=== PATIENT | female | born 2000 | race Two or more races ===

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

== ENCOUNTER 2024-05-16 14:12 | Emergency (ER) | payer BC, SELFPAY ==
--- NOTE | ~2024-05-16 | CT_ITS ---
EXAMINATION: CT ABDOMEN AND PELVIS WITHOUT CONTRAST CLINICAL INFORMATION: Right lower quadrant and back pain. Microscopic hematuria. Evaluate for renal stone. COMPARISON: None available. TECHNIQUE: Multidetector volumetric imaging was performed from the superior aspect of the liver through the pubic symphysis. Sagittal and coronal reformatted images were obtained on the technologist's workstation. This CT examination was performed using dose optimization techniques as appropriate, variously including the following: *Automated exposure control *Adjustment of mA and/or kV according to patient size (this includes techniques or standardized protocols for targeted exams where dose is matched to indication/reason for exam; i.e. extremities or head) *Use of iterative reconstruction technique DLP: 338 mGy-cm FINDINGS: LUNG BASES: The visualized lung bases are unremarkable. LIVER, GALLBLADDER, AND BILIARY TREE: The liver is normal in size, shape, and attenuation. No focal hepatic lesion or biliary ductal dilatation is present. The gallbladder is unremarkable with no evidence of radiopaque gallstones, gallbladder wall thickening, or obvious pericholecystic inflammatory changes. PANCREAS: Unremarkable. SPLEEN: Unremarkable. ADRENAL GLANDS: Unremarkable. KIDNEYS AND URETERS: The kidneys are normal in size, shape, and attenuation. No hydronephrosis, hydroureter, or calculi seen. No perinephric stranding. BLADDER: Distended. No wall thickening. GASTROINTESTINAL TRACT: Moderate stool burden. The appendix is not well visualized. ABDOMINAL WALL: No significant hernia is appreciated. LYMPH NODES: Normal. VASCULAR: Unremarkable. PELVIC VISCERA: IUD in place. OSSEOUS STRUCTURES: Unremarkable. CT/CT abdomen pelvis wo IV con IMPRESSION: 1. No nephrolithiasis. 2. Moderate stool burden. The appendix is not well visualized. Fleischner guidelines were followed. Electronically signed by: Moshe Raza MD 05/16/2024 03:34 PM EDT
[2024-05-16 14:19] VITALS: BP 124/68; PULSE 78; RESP 18; TEMP 36.6; O2SAT 100; BMI 20.5
--- NOTE | 2024-05-16 14:19 | ED_ITS ---
HPI - Abdominal Pain General Chief Complaint: Abdominal Pain Stated Complaint: abd pain Time Seen by Provider: 05/16/24 14:40 Source: patient and family Mode of arrival: ambulatory Limitations: no limitations History of Present Illness HPI narrative: Patient is a 23-year-old female who presents emergency department for evaluation of right lower quadrant abdominal pain with some radiation to the back exacerbated while ambulating. Denies history of similar pain in the past. The pain has been constant throughout today with varying intensity. Denies fevers, chills, chest pain, nausea, vomiting, hematemesis, diarrhea, constipation, hematochezia, melena, dysuria, frequency, urinary urgency, hesitancy, hematuria, denies pelvic pain or abnormal vaginal discharge. Denies concern for sexually transmitted infection. Denies concern for , LMP unknown has IUD. Related Data Allergies Allergy/AdvReac Type Severity Reaction Status Date / Time No Known Allergies Allergy Verified 05/16/24 14:20 Review of Systems Review of Systems Yes all other systems are reviewed and are negative [facility] Past Medical History Attestation statement: The following information was validated with the patient. Source: old records reviewed Social History Social History Advance Directives: No Advance Directives Information Provided: No Do you have a plan to hurt others: No Plan Physical Exam ED Vital Signs: Vital Signs - 24 hr 05/16/24 14:19 Temperature 97.9 F Pulse Rate 78 Respiratory Rate 18 Blood Pressure 124/68 Pulse Oximetry 100 Oxygen Delivery Method Room Air BMI result Body Mass Index 20.5 Appearance: Alert.?Oriented to person, place and time. No acute distress.?Normal affect.?? Neck: Normal inspection.? Neck supple.?? CVS: Heart sounds normal. Normal heart rate and rhythm.? Pulses normal.?? Respiratory: No respiratory distress.? Lung sounds clear to auscultation bilaterally?? Abdomen: Soft mild tenderness upon palpation over the right lower quadrant. No rebound tenderness at McBurney's point. Negative psoas sign. Negative Rovsing sign. Negative Becker sign. Positive right CVAT. Normoactive bowel sounds. No pulsatile mass.?? Skin: Skin warm and dry.? Normal skin color.? Extremities: No lower extremity edema.? Neuro: Moves all extremities spontaneously. Sensation intact bilaterally. Ambulates with normal steady gait. Course Course Course Narrative: This is a rapid medical exam. Defer additional HPI, ROS, PE to primary provider. 23-year-old female with no known medical history presents with a right lower quadrant abdominal pain with waking, lower back pain. No other symptoms. Has IUD in place (does not get period). Patient was seen at urgent care and referred in for further evaluation. Will need labs, UA, ur preg. Defer imaging to provider. GHAZAL Singer APRN Reevaluation(s) Reevaluation #1: CT of the abdomen and pelvis without acute pathology, although appendix is not well visualized, she has no rebound tenderness, and her pain on palpation is very mild, leukocytosis, she is afebrile in no tachycardia, CRP is not elevated. Does have a moderate stool burden and upon my personal interpretation of CT imaging there is a significant stool burden in the right lower quadrant and may be the cause for her pain. She does state that she typically moves her bowels multiple times daily in the morning with normal caliber no diarrhea. Of note she has only had a single bowel movement this morning, a smaller amount than usual. CT also reveals a distended bladder, no evidence of nephrolithiasis or ureteral dilation to suggest we sent stone passing, again urinalysis without compelling evidence of UTI, she does state that she has a ?fear to urinate due to the pain? denies overt symptoms, she was requested to urinate after CT scan results were reviewed, PVR following was 0, so no acute urinary retention. Medical Decision Making Medical Decision Making MDM Narrative: Patient is a 23-year-old female who presents emergency department for evaluation of right lower quadrant pain as per HPI. Overall she appears well, nontoxic, afebrile. She does have some mild tenderness upon palpation in the right lower quadrant though no rigidity or guarding, negative rebound tenderness at McBurney's point, some mild right CVAT. Urinalysis with microscopic hematuria but no signs of infection concern at this time for nephrolithiasis/ureteral calculi versus appendicitis. Negative Becker sign, unlikely acute cholecystitis, choledocholithiasis, no fever or jaundice to suggest acute cholangitis. Denies associated acid reflux, no tenderness upon palpation over the epigastrium or left upper quadrant to suggest gastritis, no recent hematemesis history less likely to suggest PUD. Denies excessive alcohol consumption, history of diabetes, lower suspicion acute pancreatitis. No tenderness of the left lower quadrant nor associated nausea, vomiting, diarrhea patient, hematochezia or melena to suggest diverticulitis or GI bleed. No appreciable hernia to suggest strangulation/incarceration. Lower suspicion for bowel obstruction. No distention or rigidity to suggest GI perforation. hCG is negative, unlikely ectopic , no reported history of ovarian cysts, no pelvic pain, lower clinical suspicion for TOA/torsion. Differential Diagnosis Differential Diagnoses: The differential diagnosis associated with the presentation includes (See narrative above) Admission/Observation Consideration of admission/observation: Escalation of care including admission/observation considered (See narrative above ) Lab Data MDM Lab Attestation statement: I reviewed the patient's lab results. CBC is without leukocytosis anemia or thrombocytopenia. No electrolyte derangement. No ENE. LFTs within normal range 05/16/24 14:28 05/16/24 14:28 Labs: Lab Results 05/16/24 Range/Units 14:28 WBC 9.6 (4.8-10.8) X10*3/uL RBC 5.20 (4.20-5.50) X10*6/uL Hgb 13.1 (12.0-16.0) g/dl Hct 40.5 (37.0-47.0) % MCV 77.9 L (80.0-98.0) fL MCH 25.2 L (27.0-33.0) pg MCHC 32.3 (31.0-35.0) g/dl RDW 13.4 (11.0-16.0) % Plt Count 268 (160-400) X10*3/uL MPV 9.4 (9.4-12.3) fL Immature Gran % (Auto) 0.3 (0.0-0.4) % Neut % (Auto) 63.7 (45-73) % Lymph % (Auto) 29.8 (20-40) % [place] % (Auto) 5.1 (2-11) % Eos % (Auto) 0.5 (0-4) % Baso % (Auto) 0.6 (0-2) % Lymph # (Auto) 2.9 (1.2-4.9) X10*3/uL [place] # (Auto) 0.5 (0.1-1.2) X10*3/uL Eos # (Auto) 0.1 (0.0-0.4) X10*3/uL Baso # (Auto) 0.1 (0.0-0.2) X10*3/uL Abs Immat Gran (auto) 0.03 (0.00-0.03) X10*3/uL Absolute Neuts (auto) 6.1 (2.0-8.3) x10*3/uL Absolute Nucleated RBC 0.000 (0.0-0.012) X10*3/uL Nucleated RBC % (auto) 0.0 (0.0-0.2) /100WBC Sodium 139 (135-145) mmol/L Potassium 3.6 (3.3-5.1) mmol/L Chloride 103 (96-108) mmol/L Carbon Dioxide 26 (22-29) mmol/L Anion Gap 14 (12-20) BUN 14 (9-16) mg/dL Creatinine 0.82 (0.5-1.4) mg/dL Estim Creat Clear Calc 110.8 Estimated GFR > 60 Random Glucose 115 (60-115) mg/dL Calcium 9.8 (8.4-10.2) mg/dL Total Bilirubin 0.7 (0.0-1.0) mg/dL Direct Bilirubin 0.3 (0.0-0.5) mg/dL AST 32 H (5-31) U/L ALT 30 (0-31) U/L Alkaline Phosphatase 71 (39-117) U/L C-Reactive Protein 0.16 (< or = 0.50) mg/dL Total Protein 8.2 H (6.5-8.0) g/dL Albumin 4.9 (3.5-5.0) g/dL Urine Color Yellow Urine Appearance Clear Urine pH 5.5 (5.0-9.0) Ur Specific [place] 1.010 (1.005-1.025) Urine Protein Negative (Neg-Trace) mg/dL Urine Glucose (UA) Negative (Negative) mg/dL Urine Ketones Negative (Negative) mg/dL Urine Blood Moderate (2+) H (Negative) Urine Nitrite Negative (Negative) Ur Leukocyte Esterase Negative (Negative) Urine RBC 6-10 H (0-2) /HPF Urine WBC 0-5 (0-5) /HPF Ur Squamous Epith Cells 0-2 (0-2) /HPF Urine Bacteria None Seen (None Seen) Hyaline Casts 0-2 (0-2) /LPF Urine Test NEGATIVE (NEGATIVE) Discharge Plan Discharge Clinical Impression: Constipation, Abdominal pain Patient Disposition: Home, Self-Care Instructions: Constipation (ED), High Fiber Diet (ED), Abdominal Pain (ED) Additional Instructions: Workup today is concerning for a moderate amount of stool in the right lower part of your abdomen which may be resulting in the pain you are experiencing. You have reported daily bowel movements without complication, including a bowel movement earlier today, therefore I recommend that you continue your dietary practices and fluid intake, if you find that you were having a more difficult time having a bowel movement over the next few days you may consider purchasing [id number] [employer] to take as per package instructions to help ease bowel movement. If you are having new or worsening symptoms or concerns you may return to emergency department for evaluation, follow-up with your primary care doctor. Print Language: Welsh
[2024-05-16 14:33] LABS: MANUAL DIFF FLAG NO
[2024-05-16 14:34] LABS: Basophils Absolute Auto 0.1 X10*3/uL (0.0-0.2); Basophils Percent Auto 0.6 % (0-2); Eosinophils Absolute Auto 0.1 X10*3/uL (0.0-0.4); Eosinophils Percent Auto 0.5 % (0-4); Hematocrit 40.5 % (37.0-47.0); Hemoglobin 13.1 g/dl (12.0-16.0); Imm Gran Abs Auto 0.03 X10*3/uL (0.00-0.03); Imm Gran Pct Auto 0.3 % (0.0-0.4); Lymphocytes Absolute Auto 2.9 X10*3/uL (1.2-4.9); Lymphocytes Percent Auto 29.8 % (20-40); Mean Corpuscular HGB Conc 32.3 g/dl (31.0-35.0); Mean Corpuscular Hemoglobin 25.2 pg (27.0-33.0); Mean Corpuscular Volume 77.9 fL (80.0-98.0); Mean Platelet Volume 9.4 fL (9.4-12.3); Monocytes Absolute Auto 0.5 X10*3/uL (0.1-1.2); Monocytes Percent Auto 5.1 % (2-11); Neutrophils Absolute Auto 6.1 x10*3/uL (2.0-8.3); Neutrophils Percent Auto 63.7 % (45-73); Platelet Count 268 X10*3/uL (160-400); Red Cell Distribution Width 13.4 % (11.0-16.0); White Blood Count 9.6 X10*3/uL (4.8-10.8)
[2024-05-16 14:36] LABS: Appearance Urine Clear; Color Urine Yellow; Glucose Urine UA Negative (Negative); Leukocyte Esterase Urine Negative (Negative); Nitrite Urine Negative (Negative); PH 5.5 (5.0-9.0); UMIC TRIGGER UACC YES; Urine Blood Moderate (2+) (Negative); Urine Ketones Negative (Negative); Urine Protein Negative (Neg-Trace)
[2024-05-16 14:37] LABS: UPreg QC Valid YES; Urine Pregnancy NEGATIVE (NEGATIVE)
[2024-05-16 14:38] LABS: Bacteria Urine None Seen (None Seen); Hyaline Casts Urine 0-2 /LPF (0-2); Squamous Epithelial Cell Urine 0-2 /HPF (0-2); WBC Urine 0-5 /HPF (0-5)
[2024-05-16 14:56] LABS: Alanine Aminotransferase 30 U/L (0-31); Albumin Level 4.9 g/dL (3.5-5.0); Alkaline Phosphatase 71 U/L (39-117); Anion Gap 14 (12-20); Aspartate Amino Transferase 32 U/L (5-31); Bilirubin Direct 0.3 mg/dL (0.0-0.5); Bilirubin Total 0.7 mg/dL (0.0-1.0); Blood Urea Nitrogen 14 mg/dL (9-16); Calcium 9.8 mg/dL (8.4-10.2); Carbon Dioxide 26 mmol/L (22-29); Chloride 103 mmol/L (96-108); Creatinine Clr Calc Pharmacy 110.8; Estimated Glomerular Filt Rate > 60; Glucose Random 115 mg/dL (60-115); Potassium 3.6 mmol/L (3.3-5.1); Sodium 139 mmol/L (135-145); Total Protein 8.2 g/dL (6.5-8.0)
[2024-05-16 16:00] LABS: C Reactive Protein 0.16 mg/dL (< or = 0.50)
[2024-05-16 16:22] VITALS: BP 124/68; PULSE 78; RESP 18; TEMP 36.6; O2SAT 100
== END 2024-05-16 16:22 | disposition home or self-care (01) ==
PROVIDERS: Nurse Practitioner Family; Emergency Provider Emergency Medicine
DX: K59.00 Constipation, unspecified (principal); R10.31 Right lower quadrant pain; M54.50 Low back pain, unspecified; R10.2 Pelvic and perineal pain; Z79.899 Other long term (current) drug therapy
CPT/HCPCS: 36415; 51798; 74176; 80048; 80076; 81001; 81025; 85025; 86140; 99283; 99284

== ENCOUNTER 2024-09-16 12:56 | Outpatient (AMB) | payer BC, SELFPAY ==
--- NOTE | 2024-09-16 13:04 | A.OFFPC_ITS ---
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 Note: Pt is here today as a New Patient to est care Allergies No Known Allergies Allergy (Verified 09/16/24 13:25) Medication List - Last Reconciled 09/16/24 by Yamile Zamarripa MD levonorgestrel (Mirena) intrauterine Tobacco use date assessed: 09/16/24 Dental Screening Dental Screen Date: 09/16/24 Did you have a dental visit in the last 12 months?: Yes Did you have a dental problem in the last 6 months where you did not have access to dental care?: No Was dental information given to patient?: Patient has 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 She has been has been diagnosed to have ADHD, has been on Focalin 40 mg daily since age 16, but has been out of medicines since 2023 when she was given her last prescription. Currently attends [employer] , will be graduating this November. Patient has been coping with her problems with concentration by chewing nicotine gum prior to exams . She is a former smoker but has quit more than 6 months ago She was seen at the [facility] in 07/2022, had her Mirena IUD inserted at that time, and also had a cervical cancer screening done. She has not been seen for follow-up since then. She has had COVID vaccines but only the 3 mandatory doses. Up-to-date with her childhood vaccination but does not get flu shots, due for her Tdap last 1 given was in 2013. [facility] Medical History (Updated 09/16/24 @ 13:44 by Yamile Zamarripa MD) Excessive sweating ADHD (attention deficit hyperactivity disorder) Surgical History (Updated 09/16/24 @ 14:03 by Yamile Zamarripa MD) No pertinent past surgical history Family History (Updated 09/16/24 @ 14:04 by Yamile Zamarripa MD) Sister Mental health disorder Depression Paternal Aunt Mental health disorder Depression Maternal Grandfather Substance use disorder Depression Father Diabetes mellitus Maternal Grandfather Alcoholism Social History Housing: House Patient Tobacco Use Status: Former Tobacco user e-Cigarette/Vaping Use: Former Use service: No Current occupational status: employed Cognitive needs: No Hearing needs: No Vision needs: No Female Reproductive History Menstrual control method: progestin IUCD (Inserted at the [facility] 07/2022) Other: Had her cervical cancer screening and IU D inserted at [facility] 07/2022 Questionnaire PHQ-9 Over the last 2 weeks, how often have you been bothered by any of the following problems? 04515 - PHQ-9 Billing: Patient declined-do not bill Source: Developed by Drs. Paco Srivastava, She Hernandez, Jarod Rodriguez and colleagues, with an educational jose from [employer]. Thrive Questionnaire Date Thrive assessed: 09/16/24 I am a: Patient What is your living situation today?: I choose not to answer this question Within the past 12 months, did the food you bought not last and you didn't have the money to get more?: I choose not to answer this question Within the past 12 months, did you worry whether your food would run out before you got money to buy more?: I choose not to answer this question Do you have trouble paying for medicines?: I choose not to answer this question Do you have trouble getting transportation to medical appointments?: I choose not to answer this question Do you have trouble paying your heating and electricity bill?: I choose not to answer this question Do you have trouble taking care of your child, family member or friend?: I choose not to answer this question Do you have trouble with day-to-day activities such as bathing, preparing meals, shopping, managing finances, etc.?: I choose not to answer this question Are you currently unemployed and looking for a job?: I choose not to answer this question Are you interested in more education?: I choose not to answer this question Please select the resources that you would like help with: None Currently or been in a relationship where the following occur: I choose not to answer THRIVE Score: 0 AUDIT C Alcohol Use Questionnaire (AUDIT-C) 1. How often do you have a drink containing alcohol?: Never Total Score: 0 COLLETTE-7 AMB Questionnaire COLLETTE-7 Date COLLETTE - 7 assessed: 09/16/24 Feeling nervous, anxious, or on edge: 0 = Not at all Not being able to stop or control worryin = Not at all Worrying too much about different things: 0 = Not at all Trouble relaxin = Not at all Being so restless that it is hard to sit still: 0 = Not at all Becoming easily annoyed or irritable: 0 = Not at all Feeling afraid as if something awful might happen: 0 = Not at all Total COLLETTE-7 score (0-4 normal; 5-9 mild; 10-14 moderate; 15-21 severe): 0 Source: Developed by Drs. Paco Srivastava, She Hernandez, Jarod Rodriguez and colleagues, with an educational jose from [employer]. COLLETTE-7 Assessment Billing COLLETTE-7 Assessment Tool: COLLETTE-7 Assessment 24556 Review of Systems Const Denies body aches, Denies fatigue, Denies fever(s), Denies headache(s) and Denies weakness Eyes Denies change in vision ENT Denies dizziness, Denies headache(s) and Denies nasal congestion Card Denies chest pain, Denies lightheadedness, Denies palpitations and Denies dyspnea Resp Denies chest congestion, Denies cough, Denies dyspnea and Denies wheezing GI Denies abdominal pain, Denies change in bowel habits and Denies heartburn Denies hematuria, Denies urinary frequency, Denies dysuria and Denies urinary urgency Musc Reports no additional complaints Skin/Breast Details: Excessive sweating in palms and soles Denies breast pain, Denies breast mass, Denies lesions and Denies rash Neuro Denies dizziness, Denies headache(s) and Denies weakness Psych Reports no additional complaints Endo Denies fatigue, Denies polydipsia, Denies polyuria and Denies palpitations Nii/Lymph Denies easy bruising Aller/Immun Denies seasonal rhinorrhea and Denies wheezing Physical exam (Primary Care) Vital Signs: Last Vital Signs Temp 98.2 F 09/16/24 13:06 Pulse 78 09/16/24 13:06 Resp 15 09/16/24 13:06 BP 92/64 09/16/24 13:06 Pulse Ox 97 09/16/24 13:06 Oxygen Delivery Method Room Air 09/16/24 13:06 BMI result Body Mass Index 21.5 Tobacco/Smoking Status: Tobacco use Status Tobacco use date assessed 09/16/24 09/16/24 13:13 Patient Tobacco Use Status Former Tobacco user 09/16/24 13:13 e-Cigarette/Vaping Use Former Use 09/16/24 13:13 Thrive Assessment: Date of Thrive Assessment Date Thrive assessed 09/16/24 09/16/24 13:18 Currently or been in a relationship where the following occur: I choose not to answer Const General: no acute distress and alert Orientation/consciousness: patient oriented x3 HENMT Ears: external ears normal, TM's normal bilaterally and EAC's normal General nose exam: Normal external nose present and No nasal discharge present Mouth: Normal oral and palatal mucosa present, oropharynx normal and moist mucous membranes Eyes General: appearance normal, both eyes and all related structures Neck Neck: Yes full ROM, Yes no lymphadenopathy and Yes supple Chest Breast/axilla inspection: normal inspection of the breasts Breast/axilla palpation: normal palpation of the breasts Resp Effort & Inspection: normal respiratory effort and able to speak in complete sentences Auscultation: clear to auscultation bilaterally Cardio Rate: regular rate Rhythm: regular rhythm Heart sounds: S1 normal heart sound present and S2 normal heart sound present GI Palpation (GI): Soft to palpation, nontender and no masses Auscultation: normal bowel sounds Back/Spine/Pelvis Back: No back tenderness Skin General skin exam: no rashes or lesions noted Neuro General: patient oriented x3, gait normal, tone normal, moves all extremities, Normal light touch and pain sensation and no focal motor deficits Cranial nerves: Yes CN's II-XII intact bilaterally Cognition (Neuro): normal cognition Extrem General: Yes full ROM, Yes no joint enlargement, Yes no clubbing, cyanosis or edema and Yes no calf tenderness Psych Appearance: grossly normal and well kempt Mental Status: mental status grossly normal Speech and movement: Normal speech and movement present Affect: normal affect Thought process: Normal thought process present Thought content: Normal thought content present, suicidality and no homicidality Coding Level of Care Code New Pt Prev Care 18-39yr(01702 Diagnoses Annual visit for general adult medical examination with abnormal findings Z00. ADHD (attention deficit hyperactivity disorder) F90.9 Excessive sweating R61 Additional Codes COLLETTE-7 Assessment Billing - COLLETTE-7 Assessment Tool: COLLETTE-7 Assessment 50729 ([id number]) Assessment & Plan Assessment & Plan (1) Annual visit for general adult medical examination with abnormal findings: Code(s): Z00.01 - Encounter for general adult medical examination with abnormal findings Plan: Will check appropriate labs. Recommended dental visit every 6 months and regular eye exams, at least every 2 years. Take adequate calcium in diet and vitamin-D 3 at 2000 IU per cap once a day, in addition to weight-bearing exercises to help maintain good muscle tone and weight control. Instructed to do self-breast exam, and recommended to get yearly mammogram, starting at age 40. Advised to schedule appointment again with the [facility] for her r outine Pap and pelvic exam which is now due and for monitoring of her IUD. Tdap given today. Patient does not want to get flu vaccine. Has had 3 COVID vaccines but does not want to get any further booster (2) ADHD (attention deficit hyperactivity disorder): Code(s): F90.9 - Attention-deficit hyperactivity disorder, unspecified type Category: Medical Plan: Prescription sent for dexmethylphenidate ER 40 mg taken once a day in a.m. (3) Excessive sweating: Code(s): R61 - Generalized hyperhidrosis Category: Medical Plan: Advised to do trial application of antiperspirant to affected areas, Orders: Orders TSH reflex Free T4 09/16/24 F90.9 - Attention-deficit hyperactivity disorder, unspecified type, R61 - Generalized hyperhidrosis, Z00.01 - Encounter for general adult medical examination with abnormal findings Comprehensive [place]. Panel Fast 09/16/24 F90.9 - Attention-deficit hyperactivity disorder, unspecified type, R61 - Generalized hyperhidrosis, Z00.01 - Encounter for general adult medical examination with abnormal findings Complete Blood Count Auto Diff 09/16/24 F90.9 - Attention-deficit hyperactivity disorder, unspecified type, R61 - Generalized hyperhidrosis, Z00.01 - Encounter for general adult medical examination with abnormal findings Lipid Panel 09/16/24 F90.9 - Attention-deficit hyperactivity disorder, unspecified type, R61 - Generalized hyperhidrosis, Z00.01 - Encounter for general adult medical examination with abnormal findings Vitamin D 25-OH Total 09/16/24 F90.9 - Attention-deficit hyperactivity disorder, unspecified type, R61 - Generalized hyperhidrosis, Z00.01 - Encounter for general adult medical examination with abnormal findings TDaP Immunization 09/16/24 Z23 - Encounter for immunization Medications: New dexmethylphenidate ER Partial Fill upon patient request. 40 mg PO QAM 30 caps 0RF F90.9 - Attention-deficit hyperactivity disorder, unspecified type Boostrix Tdap (diphth,pertus(acell),tetanus) 0.5 mL IM ONCE 0.5 mL 0RF NS Z23 - Encounter for immunization
[2024-09-16 13:06] VITALS: BP 92/64; PULSE 78; RESP 15; TEMP 36.8; O2SAT 97; BMI 21.5
--- OUTSIDE RECORDS SUMMARY | 2024-09-16 15:22 | XMS_ITS | Encounter Summary ---
Author Organization [facility] Address [address] [place] [address] Phone Care Team Providers Care Kiln Operator Name Role Phone Radha Lynn MD Primary Care Provider [phone]- [phone] Reason for Visit * Reason Onset Date Comments Med Refill 11/25/2021 Encounter Details Date Type Department Care Team ([facility] Contact Info) Description 11/25/2021 Refill [facility] [place] [address] [place] [address] Radha Lynn MD [address] [place] [address] Attention deficit hyperactivity disorder (ADHD), combined type Social History Tobacco Use Types Packs/Day Years Used Date Smoking Tobacco: Never Smokeless Tobacco: Never Hunger/Food Answer Date Recorded In the last 12 months, did y ou or your family ever eat less than you felt you should because there wasn't enough money for food? No 10/16/2021 Stable Housing Answer Date Recorded Are you worried that in the next 2 months you may not have stable housing? No 10/16/2021 Transportation Concerns Answer Date Rec orded In the last 12 months, have you or your family ever had to go without healthcare because you didn't have a way to get there? No 10/16/2021 Hazards in Home Answer Date Recorded Think about the place you li ve. Do you have problems with any of the following? Pests (mice or roaches), mold, no/not working smoke detectors, water leaks, no window guards. No 2021 Financing Utilities Answer Date Recorde d In the last 12 months, has t he electric, gas, oil, or water company threatened to shut off your services in your home? No 10/16/2021 Safety at Home Answer Date Recorded Are you or your family worried about feeling saf e in your home? No 10/16/2021 Outside Support Answer Date Recorded Do you feel that you need mo re support from other people or programs to help you care for yourself or your family? No 10/16/2021 Understanding Health Concerns Answer Da te Recorded Do you need help understandi ng your or your child's healthcare needs (diagnosis, medications, plan, etc.)? No 10/16/2021 Financing Health Concerns Answer Date R ecorded In the last 12 months, was t here a time when your child needed to see a doctor or get medications or supplies but could not because of cost? No 10/16/2021 Missing School or Work Answer Date Liam rded Did you or your child miss s chool or work because of a health problem that could have been avoided? No 10/16/2021 Comments No Sex and Gender Information Value Date Recorded Sex Assigned at Not on file Legal Sex Female 4:53 PM EDT Gender Identity Female 08/20/2021 8:40 PM EST Sexual Orientation Straight 10/16/2021 2: 04 PM EDT documented as of this encounter Miscellaneous Notes * Telephone Encounter - Radha Lynn MD - 11/27/2021 5:12 PM EDT Pt has requested refill too soon. Script refused for now. PPP * Telephone Encounter - Mazin Alvarado LPN - 11/27/2021 10:40 AM EDT Pt is requesting a refill on Focalin XR 40 mg. Last PE was 10/16/21. documented in this encounter Plan of Treatment Not on file documented as of this encounter Visit Diagnoses Diagnosis Attention deficit hyperactivity disorder (ADHD), combined type documented in this encounter Care Teams Kiln Operator Relationship Specialty Start Date End Date Radha Lynn MD [address] [place] [address] [place] [address] PCP - General 02/28/17 11/12/23 documented as of this encounter
--- OUTSIDE RECORDS SUMMARY | 2024-09-16 15:22 | XMS_ITS | Encounter Summary ---
Author Organization [facility] Address [address] [place] [address] Phone Care Team Providers Care Name Plate Stamping Machine Operator Name Role Phone Radha Lynn MD Primary Care Provider [phone]- [phone] Reason for Visit * Reason Onset Date Comments Med Refill 10/17/2022 Encounter Details Date Type Department Care Team ([facility] Contact Info) Description 10/17/2022 Refill [facility] [place] [address] [place] [address] Radha Lynn MD [address] [place] [address] Attention deficit hyperactivity disorder (ADHD), combined type [...] Telephone Encounter - Radha Lynn MD - 10/17/2022 12:41 PM EDT Script sent. PPP * Telephone Encounter - Cam Osorio LPN - 10/17/2022 10:06 AM EDT Pt requesting refill of Dexmethylphenidate XR 40mg via mychart. Last PE 10/16/21, last med check 01/01 Call placed regarding need for med check. Number not in service documented in this encounter Plan of Treatment Not on file documented as of this encounter Visit Diagnoses Diagnosis Attention deficit hyperactivity disorder (ADHD), combined type documented in this encounter Care Teams Name Plate Stamping Machine Operator Relationship Specialty Start Date End Date Radha Lynn MD 150 [facility] [place] [address] PCP - General 02/28/17 11/12/23 documented as of this encounter
--- OUTSIDE RECORDS SUMMARY | 2024-09-16 15:22 | XMS_ITS | Encounter Summary ---
Author Organization [facility] Address [address] [place] [address] Phone Care Team Providers Care Tub Tender Name Role Phone Radha Lynn MD Primary Care Provider [phone]- [phone] Reason for Visit * Reason Comments Med Refill Encounter Details Date Type Department Care Team ([facility] st Contact Info) Description 11/10/2021 Refill [facility] [place] [address] [place] [address] Radha Lynn MD [address] [place] [address] Irregular periods Social History Tobacco Use Types Packs/Day Years [...] Telephone Encounter - Radha Lynn MD - 11/12/2021 1:04 PM EDT Script sent. PPP * Telephone Encounter - Jocelyn Park MA - 11/12/2021 10:20 AM EDT Pharm refill for the [facility]. Well visit current. Message to PPP documented in this encounter Plan of Treatment Not on file documented as of this encounter Visit Diagnoses Diagnosis Irregular periods documented in this encounter Care Teams Tub Tender Relationship Specialty Start Date End Date Radha Lynn MD [address] [place] [address] [place] [address] PCP - General 02/28/17 11/12/23 documented as of this encounter
--- OUTSIDE RECORDS SUMMARY | 2024-09-16 15:22 | XMS_ITS | Encounter Summary ---
Author Organization [facility] Address [address] [place] [address] Phone Care Team Providers Care Flag Signaler Name Role Phone Radha Lynn MD Primary Care Provider Encounter Details Date Type Department Care Team (Late st Contact Info) Description 09/23/2013 Documentation [facility] [place] [address] [place] [address] Family Medicine, Physician [address] [place], [place] [id number] Social History Tobacco Use Types Packs/Day Years Used Date Smoking Tobacco: Never Assessed Comments Unknown Sex and Gender Information Value Date Recorded Sex Assigned at Not on file Legal Sex Female 4:53 PM EDT Gender Identity Female 08/20/2021 8:40 PM EST Sexual Orientation Straight 10/16/2021 2: 04 PM EDT documented as of this encounter Plan of Treatment Not on file documented as of this encounter Visit Diagnoses Not on filedocumented in this encounter Care Teams Flag Signaler Relationship Specialty Start Date End Date Radha Lynn MD [address] [place] [address] PCP - General 02/28/17 11/12/23 documented as of this encounter
--- OUTSIDE RECORDS SUMMARY | 2024-09-16 15:22 | XMS_ITS | Encounter Summary ---
Author Organization [facility] Address [address] [place] [address] Phone Care Team Providers Care Veneer Jointer Helper Name Role Phone Radha Lynn MD Primary Care Provider Encounter Details Date Type Department Care Team (Late st Contact Info) Description 12/21/2010 Documentation [facility] [place] [address] [place] [address] Family Medicine, Physician [address] [place], [place] [id number] Social History Tobacco Use Types Packs/Day Years [...] on filedocumented in this encounter Care Teams Veneer Jointer Helper Relationship Specialty Start Date End Date Radha Lynn MD [address] [place] [address] PCP - General 02/28/17 11/12/23 documented as of this encounter
--- OUTSIDE RECORDS SUMMARY | 2024-09-16 15:22 | XMS_ITS | Clinical Summary ---
Author Organization [facility] Address [address] [place] [address] Phone Care Team Providers Care Shaker Operator Name Role Phone Unavailable Primary Care Provider Unavailabl e Allergies Active Allergy Reactions Criticality Noted Date Comments Lactose Abdominal pain,Nausea Only 0 Medications dexmethylphenidate XR (Focalin XR) 40 MG 24 hr capsuleIndications :Attention deficit hyperactivity disorder (ADHD), combined type Take 1 capsule (40 mg total) by mouth daily. 30 capsule 4 Active Active Problems Problem Noted Date Diagnosed Date Attention deficit hyperactiv ity disorder (ADHD), combined type 11/11/2018 Overview (11/19/2021): Evaluated at [facility] Started on Concerta 18 mg (September 2018)- no effect Pt decided on her own to take 2 tabs before [facility] - felt like it worked for concentration but did not like the way it made her feel (very emotional, crying) Tried Concerta 27 mg - no effect Changed to Adderall because it works for sister Tried on Adderall XR 20 mg - helped concentration but felt shaky Decreased to Adderall XR 15 mg Changed to Focalin XR in November 2018 with good results Repeat Neuropsych testing showed significant improvement Focalin increased from 30 mg to 40 mg daily on 10/16/21 Assessment & Plan (12/12/2018 8:58 AM EDT): Tried on Focalin XR 15 mg at last visit. Now will be increased to Focalin XR 20 mg for a week. If no effect, advised to try 2 Focalin XR 15 mg tabs Adjustment disorder with mixed anxiety and depre ssed mood 11/11/2018 Overview (07/19/2020): Hx of counseling - doing well at this time Influenza vaccine refused 07/01/2018 Overview (10/16/2021): Has never gotten the flu vaccine, last declined Sep 2021 Encounters Date Type Department Care Team Description 08/24/2024 Telephone [facility] [place] [address] [place] [address] Chuck Lambert MD Immunizations from Last 3 Months Immunizations Immunization Administration Dates Next Due COVID-19 Pfizer, monovalent, 12+ years 1 DTaP 5 12/22/2006, 4,04/26/2003,03/09,2002 HPV, Quadrivalent 09/09/2014,04/05/2014,02/26/20 14 Hep A, ped/adol 09/09/2014,02/25/2014 Hep B, ped/adol 08/24/2003,2002,2002 Hib (HbOC) 01/17/2004 Hib (PRP-T) 04/26/2003,03/09/2003,2002 IPV 12/22/2006, 4,03/09/2003,12/16 MMR 10/21/2003 MMRV 12/22/2006 Meningococcal B Trumenba 09/30/2023,01/01/2022 Meningococcal Conj (Menactra) MCV4P 07/07/2019,0 02/25/2014 Pneumococcal Conjugate 04/18/2004,2002,03/09/2003,12/16 Tdap 02/25/2014 Varicella 11/19/2005 Family History Medical History Relation Name Comments Diabetes Father Jose Ly Relation Name Status Comments Father Jose Ly Alive Father: Alive a nd well Mother Mikaela Ly Alive Mother: Migrain es Paternal Grandmother Paterna l aunt: Schizophrenia, ADD/ADHD Sister 1 Lissette Alive Sister: Asthma, Alive and well Sister 2 Perryne Alive Social History Tobacco Use Types Packs/Day Years Used Date Smoking Tobacco: Never Smokeless Tobacco: Never Hunger/Food Answer Date Recorded In the last 12 months, did y ou or your family ever eat less than you felt you should because there wasn't enough money for food? No 09/30/2023 Stable Housing Answer Date Recorded Are you worried that in the next 2 months you may not have stable housing? No 09/30/2023 Transportation Concerns Answer Date Rec orded In the last 12 months, have you or your family ever had to go without healthcare because you didn't have a way to get there? No 09/30/2023 Hazards in Home Answer Date Recorded Think about the place you li ve. Do you have problems with any of the following? Pests (mice or roaches), mold, no/not working smoke detectors, water leaks, no window guards. No 2023 Financing Utilities Answer Date Recorde d In the last 12 months, has t he electric, gas, oil, or water company threatened to shut off your services in your home? No 09/30/2023 Safety at Home Answer Date Recorded Are you or your family worried about feeling saf e in your home? No 09/30/2023 Outside Support Answer Date Recorded Do you feel that you need mo re support from other people or programs to help you care for yourself or your family? No 09/30/2023 Understanding Health Concerns Answer Da te Recorded Do you need help understandi ng your or your child's healthcare needs (diagnosis, medications, plan, etc.)? No 09/30/2023 Financing Health Concerns Answer Date R ecorded In the last 12 months, was t here a time when your child needed to see a doctor or get medications or supplies but could not because of cost? No 09/30/2023 Missing School or Work Answer Date Liam rded Did you or your child miss s chool or work because of a health problem that could have been avoided? No 09/30/2023 Comments No Sex and Gender Information Value Date Recorded Sex Assigned at Not on file Legal Sex Female 4:53 PM EDT Gender Identity Female 08/20/2021 8:40 PM EST Sexual Orientation Straight 10/16/2021 2: 04 PM EDT Last Filed Vital Signs Vital Sign Reading Time Taken Comments Blood Pressure 115/71 09/30/2023 10:54 AM EDT Pulse 80 09/30/2023 10:54 AM EDT Temperature 36.6 ??C (97.9 ??F) 09/30/2023 10:54 AM E DT Respiratory Rate - - Oxygen Saturation - - Inhaled Oxygen Concentration - - Weight 64 kg (141 lb 3.2 oz) 09/30/2023 10:54 AM EDT Height 175.3 cm (5' 9 ) 09/30/2023 10:54 AM EDT Body Mass Index 20.85 09/30/2023 10:54 AM EDT Plan of Treatment Health Maintenance Due Date Last Done Comments Influenza Vaccines (#1) 2024 DTaP,Tdap,and Td Vaccines (7 - Td or Tdap) 02/26/2024 02/25/2014, 12/22/2006, 04/18/2004, Additional history exists COVID-19 Vaccine (2023-2 5 season) 2024 06/19/2021, 12/11/2020, 11/14/2020 Hepatitis B Vaccines Completed 08/24/2003, 2002, 2002 HIB Vaccines Completed 01/17/2004, 01/2003, 03/09/2003, Additional history exists Pneumococcal Vaccine Completed 04/18/2004, 04/26/2003, 03/09/2003, Additional history exists IPV Vaccines Completed 12/22/2006, 10/2003, 03/09/2003, Additional history exists MMR Vaccines Completed 12/22/2006, 10/2006, 10/21/2003 Varicella Vaccines Completed 12/22/2006, 0 12/22/2006, 11/19/2005 HPV Vaccines Completed 09/09/2014, 03/21, 02/25/2014 Hepatitis A Vaccines Completed 09/09/2014, 02/26/20 14 Meningococcal Vaccine Completed 07/07/2019, 014 Men B Vaccine Completed 09/30/2023, 01/01/2022 Procedures * Due to [place] law, this organization might not be sharing sensitive test results. Procedure Name Priority Date/Time Associated Diagnosis Comments CHLAMYDIA AND GONORRHEA, AMPLIFIED Routine 09/30/2023 11:49 AM EDT Screening examination for bacterial and spirochetal disease from Last 3 Months or Most Recently Relevant to Health Maintenance Results * Due to [place] state law, this organization might not be sharing sensitive test results. * Chlamydia and Gonorrhoea, Amplified (Urine) (09/30/2023 11:49 AM EDT) C trach GIANA Negative Negative [facility] N gonorrhoeae GIANA Negative Negative [facility] Urine (Urine, Random (not clean void)) 09/30/2023 11:49 AM EDT 09/30/2023 Comment:Urine, Rando Narrative [facility] - 10/02/2023 12:08 PM EDT Performed at: ??01 - [facility] [address], [address], [place], [place] ??[id number] Brick Handler: Yosef Zarate MD, Phone: ??[phone] Radha Lynn MD LAB MICROBIOLOGY - GENERAL ORDERABLES Final Result Performing Organization Address City/State/[facility] de Phone Number [facility] [address] [place] [address] from Last 3 Months or Most Recently Relevant to Health Maintenance Insurance [employer] BLUE CARD OUT OF STATE BCBS BLUE CARD OUT OF STATE
--- OUTSIDE RECORDS SUMMARY | 2024-09-16 15:22 | XMS_ITS | Encounter Summary ---
Author Organization [facility] Address [address] [place] [address] Phone Care Team Providers Care Information Technology Associate Name Role Phone Radha Lynn MD Primary Care Provider [phone]- [phone] Reason for Visit * Reason Onset Date Comments Med Refill 11/19/2021 Encounter Details Date Type Department Care Team ([facility] st Contact Info) Description 11/19/2021 Refill [facility] [place] [address] [place] [address] Radha Lynn MD [address] [place] [address] Attention deficit hyperactivity disorder (ADHD), combined type [...] Telephone Encounter - Radha Lynn MD - 11/20/2021 5:29 PM EDT Just refilled 2 weeks ago. PPP * Telephone Encounter - Tia Villasenor RN - 11/20/2021 11:25 AM EDT Pt requesting med refill of Focalin XR 40mg. Last PE 10/16/21. Last med check 11/19/21. Refill refused d/t script sent on 11/05/21. Left detailed message on pt self identified VM. documented in this encounter Plan of Treatment Not on file documented as of this encounter Visit Diagnoses Diagnosis Attention deficit hyperactivity disorder (ADHD), combined type documented in this encounter Care Teams Information Technology Associate Relationship Specialty Start Date End Date Radha Lynn MD 150 [facility] [place] [address] PCP - General 02/28/17 11/12/23 documented as of this encounter
--- OUTSIDE RECORDS SUMMARY | 2024-09-16 15:22 | XMS_ITS | Encounter Summary ---
Author Organization [facility] Address [address] [place] [address] Phone Care Team Providers Care Supervisor Insecticide Name Role Phone Unavailable Primary Care Provider Unavailabl e Reason for Visit * Reason Onset Date Comments Immunizations 08/24/2024 Encounter Details Date Type Department Care Team ([facility] Contact Info) Description 08/24/2024 Telephone [facility] [place] [address] [place] [address] Chuck Lambert MD [address] [place] [address] Immunizations Social History Tobacco Use Types Packs/Day Years [...] encounter Miscellaneous Notes * Telephone Encounter - Kailey Reno - 08/24/2024 11:31 AM EST PT called requesting immunization emailed to [email or web address] documented in this encounter Plan of Treatment Not on file documented as of this encounter Visit Diagnoses Not on filedocumented in this encounter
--- OUTSIDE RECORDS SUMMARY | 2024-09-16 15:22 | XMS_ITS | Encounter Summary ---
Author Organization [facility] Address [address] [place] [address] Phone Care Team Providers Care Wax Pumper Name Role Phone Radha Lynn MD Primary Care Provider [phone] Encounter Details Date Type Department Care Team (Late st Contact Info) Description 09/26/[address] [facility] [place] Family Medicine [address] [place] [address] Family Medicine, Physician [address] [place], [place] [phone] Social History Tobacco Use Types Packs/Day Years [...] on filedocumented in this encounter Care Teams Wax Pumper Relationship Specialty Start Date End Date Radha Lynn MD [address] [place] [address] PCP - General 02/28/17 11/12/23 documented as of this encounter
--- OUTSIDE RECORDS SUMMARY | 2024-09-16 15:22 | XMS_ITS | Encounter Summary ---
Author Organization [facility] Address [address] [place] [address] Phone Care Team Providers Care Window Framer Name Role Phone Radha Lynn MD Primary Care Provider [phone]- [phone] Reason for Visit * Reason Comments Med Refill Encounter Details Date Type Department Care Team ([facility] st Contact Info) Description 08/24/2020 Refill [facility] [place] [address] [place] [address] Radha Lynn MD [address] [place] [address] Irregular periods Social History Tobacco Use Types Packs/Day Years Used Date Smoking Tobacco: Never Smokeless Tobacco: Never Hunger/Food Answer Date Recorded In the last 12 months, did y ou or your family ever eat less than you felt you should because there wasn't enough money for food? No 07/18/2020 Stable Housing Answer Date Recorded Are you worried that in the next 2 months you may not have stable housing? No 07/18/2020 Transportation Concerns Answer Date Rec orded In the last 12 months, have you or your family ever had to go without healthcare because you didn't have a way to get there? No 07/18/2020 Hazards in Home Answer Date Recorded Think about the place you li ve. Do you have problems with any of the following? Pests (mice or roaches), mold, no/not working smoke detectors, water leaks, no window guards. No 2019 Financing Utilities Answer Date Recorde d In the last 12 months, has t he electric, gas, oil, or water company threatened to shut off your services in your home? No 07/18/2020 Safety at Home Answer Date Recorded Are you or your family worried about feeling saf e in your home? No 07/18/2020 Outside Support Answer Date Recorded Do you feel that you need mo re support from other people or programs to help you care for yourself or your family? No 07/18/2020 Understanding Health Concerns Answer Da te Recorded Do you need help understandi ng your or your child's healthcare needs (diagnosis, medications, plan, etc.)? No 07/18/2020 Financing Health Concerns Answer Date R ecorded In the last 12 months, was t here a time when your child needed to see a doctor or get medications or supplies but could not because of cost? No 07/18/2020 Missing School or Work Answer Date Liam rded Did you or your child miss s chool or work because of a health problem that could have been avoided? No 07/18/2020 Comments No Sex and Gender Information Value Date Recorded Sex Assigned at Not on file Legal Sex Female 4:53 PM EDT Gender Identity Female 08/20/2021 8:40 PM EST Sexual Orientation Straight 10/16/2021 2: 04 PM EDT documented as of this encounter Miscellaneous Notes * Telephone Encounter - Radha Lynn MD - 08/24/2020 12:33 PM EST Script sent. PPP * Telephone Encounter - Violeta Clark LPN - 08/24/2020 9:02 AM EST Refill request for OCPS, last PE 07/18/20/LUIS documented in this encounter Plan of Treatment Not on file documented as of this encounter Visit Diagnoses Diagnosis Irregular periods documented in this encounter Care Teams Window Framer Relationship Specialty Start Date End Date Radha Lynn MD 150 [facility] [place] [address] PCP - General 02/28/17 11/12/23 documented as of this encounter
--- OUTSIDE RECORDS SUMMARY | 2024-09-16 15:22 | XMS_ITS | Encounter Summary ---
Author Organization [facility] Address [address] [place] [address] Phone Care Team Providers Care Storage Consultant Name Role Phone Radha Lynn MD Primary Care Provider Encounter Details Date Type Department Care Team ([facility] st Contact Info) Description 03/06/2017 Conversion Encounter [facility] [address] [place] [address] Social History Tobacco Use Types Packs/Day Years [...] on filedocumented in this encounter Care Teams Storage Consultant Relationship Specialty Start Date End Date Radha Lynn MD [address] [place] [address] PCP - General 02/28/17 11/12/23 documented as of this encounter
--- OUTSIDE RECORDS SUMMARY | 2024-09-16 15:22 | XMS_ITS | Encounter Summary ---
Author Organization [facility] Address [address] [place] [address] Phone Care Team Providers Care Log Sorter Name Role Phone Radha Lynn MD Primary Care Provider Encounter Details Date Type Department Care Team (Late st Contact Info) Description 12/26/2016 Documentation [facility] [place] [address] [place] [address] Family Medicine, Physician [address] [place], [place] [phone] Social History Tobacco Use Types Packs/Day Years [...] on filedocumented in this encounter Care Teams Log Sorter Relationship Specialty Start Date End Date Radha Lynn MD [address] [place] [address] PCP - General 02/28/17 11/12/23 documented as of this encounter
--- OUTSIDE RECORDS SUMMARY | 2024-09-16 15:22 | XMS_ITS | Encounter Summary ---
Author Organization [facility] Address [address] [place] [address] Phone Care Team Providers Care Leather Parts Matcher Name Role Phone Radha Lynn MD Primary Care Provider [phone]- [phone] Reason for Visit * Reason Onset Date Comments Med Refill 01/18/2022 Encounter Details Date Type Department Care Team ([facility] st Contact Info) Description 01/18/2022 Refill [facility] [address] [place] [address] Radha Lynn MD [address] [place] [address] Attention deficit hyperactivity disorder (ADHD), combined type [...] Telephone Encounter - Radha Lynn MD - 01/19/2022 10:49 AM EDT Too soon for refill. PPP * Telephone Encounter - Tia Villasenor RN - 01/18/2022 11:31 AM EDT Pt requesting med refill of Focalin XR 40mg. Last PE 10/16/21. Last med check 01/01/22. Will refuse d/t script sent 01/01. Unable to sign for refusal. Please sign. Will send my chart message. documented in this encounter Plan of Treatment Not on file documented as of this encounter Visit Diagnoses Diagnosis Attention deficit hyperactivity disorder (ADHD), combined type documented in this encounter Care Teams Leather Parts Matcher Relationship Specialty Start Date End Date Radha Lynn MD [address] [place] [address] [place]OUS [place] [address] PCP - General 02/28/17 11/12/23 documented as of this encounter
--- OUTSIDE RECORDS SUMMARY | 2024-09-16 15:22 | XMS_ITS | Encounter Summary ---
Author Organization [facility] Address [address] [place] [address] Phone Care Team Providers Care Cell Stripper Final Name Role Phone Radha Lynn MD Primary Care Provider [phone] Reason for Visit * Reason Onset Date Comments Med Refill 08/20/2021 Encounter Details Date Type Department Care Team ([facility] Contact Info) Description 08/20/2021 Refill [facility] [place] [address] [place] [address] Radha Lynn MD [address] [place] [address] Irregular periods Social History Tobacco Use Types [...] Telephone Encounter - Radha Lynn MD - 08/21/2021 11:59 AM EST Script sent. PPP * Telephone Encounter - Tia Villasenor RN - 08/21/2021 11:25 AM EST Pt requesting refill for OCP. Last PE 07/18/20. Upcoming PE 10/09/21 documented in this encounter Plan of Treatment Not on file documented as of this encounter Visit Diagnoses Diagnosis Irregular periods documented in this encounter Care Teams Cell Stripper Final Relationship Specialty Start Date End Date Radha Lynn MD [address] [place] [address] [place] [address] PCP - General 02/28/17 11/12/23 documented as of this encounter
--- OUTSIDE RECORDS SUMMARY | 2024-09-16 15:22 | XMS_ITS | Encounter Summary ---
Author Organization [facility] Address [address] [place] [address] Phone Care Team Providers Care Hemstitcher Name Role Phone Radha Lynn MD Primary Care Provider Encounter Details Date Type Department Care Team (Late st Contact Info) Description 08/26/2011 Documentation [facility] [place] Medicine [address] [place] [address] Family Medicine, Physician [address] [place], [place] [phone] Social History Tobacco Use Types Packs/Day Years [...] on filedocumented in this encounter Care Teams Hemstitcher Relationship Specialty Start Date End Date Radha Lynn MD [address] [place] [address] PCP - General 02/28/17 11/12/23 documented as of this encounter
--- OUTSIDE RECORDS SUMMARY | 2024-09-16 15:22 | XMS_ITS | Encounter Summary ---
Author Organization [facility] Address [address] [place] [address] Phone Care Team Providers Care Equipment Installer Name Role Phone Radha Lynn MD Primary Care Provider Reason for Visit * Reason Onset Date Comments Med Refill Med Refill 10/12/2018 Encounter Details Date Type Department Care Team ([facility] st Contact Info) Description 08/29/2018 Refill [facility] [place] [address] [place] [address] Radha Lynn MD [address] [place] [address] Irregular periods Social History Tobacco Use Types Packs/Day Years Used Date Smoking Tobacco: Never Smokeless Tobacco: Never Hunger/Food Answer Date Recorded No 08/08/2018 Stable Housing Answer Date Recorded 0 08/08/2018 Transportation Concerns Answer Date Rec orded No 08/08/2018 Hazards in Home Answer Date Recorded No 08/08/2018 Financing Utilities Answer Date Recorde d No 08/08/2018 Safety at Home Answer Date Recorded No 08/08/2018 Outside Support Answer Date Recorded No 08/08/2018 Understanding Health Concerns Answer Da te Recorded No 08/08/2018 Financing Health Concerns Answer Date R ecorded No 08/08/2018 Missing School or Work Answer Date Liam rded No 08/08/2018 Comments Unknown Sex and Gender Information Value Date Recorded Sex Assigned at Not on file Legal Sex Female 4:53 PM EDT Gender Identity Female 08/20/2021 8:40 PM EST Sexual Orientation Straight 10/16/2021 2: 04 PM EDT documented as of this encounter Miscellaneous Notes * Telephone Encounter - Radha Lynn MD - 08/31/2018 5:20 PM EST Refilled on 08/31/18. PPP * Telephone Encounter - Violeta Clark LPN - 08/31/2018 9:03 AM EST Refill request for OCP's. Last PE 07/01/18/JOD documented in this encounter Plan of Treatment Not on file documented as of this encounter Visit Diagnoses Diagnosis Irregular periods documented in this encounter Care Teams Equipment Installer Relationship Specialty Start Date End Date Radha Lynn MD 150 [facility] [place] [address] PCP - General 02/28/17 11/12/23 documented as of this encounter
--- OUTSIDE RECORDS SUMMARY | 2024-09-16 15:22 | XMS_ITS | Encounter Summary ---
Author Organization [facility] Address [address] [place] [address] Phone Care Team Providers Care Scallop Binder Name Role Phone Radha Lynn MD Primary Care Provider [phone] Encounter Details Date Type Department Care Team (Late st Contact Info) Description 01/30/2017 [place]ation [facility] [place] [address] [place] [address] Family Medicine, Physician [address] [place], [place] [phone] Social History Tobacco Use Types Packs/Day Years [...] on filedocumented in this encounter Care Teams Scallop Binder Relationship Specialty Start Date End Date Radha Lynn MD [address] [place] [address] PCP - General 02/28/17 11/12/23 documented as of this encounter
--- OUTSIDE RECORDS SUMMARY | 2024-09-16 15:22 | XMS_ITS | Encounter Summary ---
Author Organization [facility] Address [address] [place] [address] Phone Care Team Providers Care Roofing Layer Name Role Phone Radha Lynn MD Primary Care Provider [phone]- [phone] Reason for Visit * Reason Onset Date Comments Med Refill 08/04/2022 Encounter Details Date Type Department Care Team ([facility] Contact Info) Description 08/04/2022 Refill [facility] [place] [address] [place] [address] Radha Lynn MD [address] [place] [address] Attention deficit hyperactivity disorder (ADHD), combined type [...] encounter Miscellaneous Notes * Telephone Encounter - Kait Tejeda LPN - 08/07/2022 8:33 AM EST Call placed to pharm- states script was sent on 07/29/22 with 30 capsules. Pt did rock picker the 30 capsules. The other 2 future scripts were sent with do not fill dates. Pharm unable to fill until those dates. Pharm requesting new script for 60 capsules. Once script is received, pharm will call the insurance to try and override. * Telephone Encounter - Radha Lynn MD - 08/07/2022 8:01 AM EST Scripts written for 3 month supply on 07/31/22 * Telephone Encounter - Kait Tejeda LPN - 08/06/2022 11:05 AM EST Mychart refill request for dexmethylphenidate 40 mg Last sent on 07/31/22 Pt to call pharm for refill PPP please refuse script documented in this encounter Plan of Treatment Not on file documented as of this encounter Visit Diagnoses Diagnosis Attention deficit hyperactivity disorder (ADHD), combined type documented in this encounter Care Teams Roofing Layer Relationship Specialty Start Date End Date Radha Lynn MD 150 [facility] [place] [address] PCP - General 02/28/17 11/12/23 documented as of this encounter
--- OUTSIDE RECORDS SUMMARY | 2024-09-16 15:22 | XMS_ITS | Encounter Summary ---
Author Organization [facility] Address [address] [place] [address] Phone Care Team Providers Care Lead Miner Blasting Name Role Phone Radha Lynn MD Primary Care Provider [phone] Encounter Details Date Type Department Care Team ([facility] st Contact Info) Description 06/12/2016 Documentation [facility] [place] [address] [place] [address] Family Medicine, Physician [address] [place], [place] [phone] Social History Tobacco Use Types Packs/Day Years [...] on filedocumented in this encounter Care Teams Lead Miner Blasting Relationship Specialty Start Date End Date Radha Lynn MD [address] [place] [address] PCP - General 02/28/17 11/12/23 documented as of this encounter
== END 2024-09-16 14:23 | disposition home or self-care (01) ==
PROVIDERS: Visit Provider Internal Medicine
DX: Z00.01 Encounter for general adult medical examination with abnormal findings (principal); F90.9 Attention-deficit hyperactivity disorder, unspecified type; R61 Generalized hyperhidrosis

== ENCOUNTER → 2024-09-16 12:56 | Outpatient (BNVA) | payer BC, SELFPAY | PROVIDERS: Visit Provider Internal Medicine | DX: Z00.01 Encounter for general adult medical examination with abnormal findings (principal); F90.9 Attention-deficit hyperactivity disorder, unspecified type; R61 Generalized hyperhidrosis; Z87.891 Personal history of nicotine dependence; Z97.5 Presence of (intrauterine) contraceptive device | CPT/HCPCS: 96127 ==

== ENCOUNTER 2024-11-26 08:23 | Outpatient (AMB) | payer BC, SELFPAY ==
--- NOTE | 2024-11-26 08:23 | MHC.OFFWIV ---
Intake Vital Signs 11/26/24 08:24 Height 5 ft 10 in BP 102/66 Blood Pressure Location Lt brachial Position Sitting Pulse 80 Pulse Source Pulse Oximeter Temp 98.1 F Temp Source Oral Pulse Oximetry (%) 98 Oxygen Delivery Method Room Air Intake Visit Reasons: EP ? Hives Patient Tobacco Use Status: Former Tobacco user Allergies No Known Allergies Allergy (Verified 11/26/24 08:25) Medication List - Last Reconciled 11/26/24 by Starr Flynn MD dexmethylphenidate ER 40 mg PO QAM levonorgestrel (Mirena) intrauterine Do you need a note to return to daycare/school/sports/work: Yes HPI EP ? Hives HPI Details Patient is 24-year-old female with a history of hives She started having rash 2 days ago Took Benadryl which did help however rash persist It is very pruritic and is extensively present especially on her buttocks and legs also on the arms There is no fever chills no sore throat no nausea no vomiting I am prescribing Medrol Dosepak for the patient she may continue with the Benadryl up to 2 times a day There is no swelling of lips or difficulty swallowing there is no wheezing no shortness a breath PFSH Medical History Excessive sweating ADHD (attention deficit hyperactivity disorder) Surgical History No pertinent past surgical history Family History Sister Mental health disorder Depression Paternal Aunt Mental health disorder Depression Maternal Grandfather Substance use disorder Depression Father Diabetes mellitus Maternal Grandfather Alcoholism Social History Housing: House Patient Tobacco Use Status: Former Tobacco user e-Cigarette/Vaping Use: Former Use service: No Current occupational status: employed Cognitive needs: No Hearing needs: No Vision needs: No Review of Systems Const All systems reviewed & are unremarkable except as noted in HPI and below Physical Exam Vital Signs: Last Vital Signs Temp 98.1 F 11/26/24 08:24 Pulse 80 11/26/24 08:24 BP 102/66 11/26/24 08:24 Pulse Ox 98 11/26/24 08:24 Oxygen Delivery Method Room Air 11/26/24 08:24 Const General: no acute distress Orientation/consciousness: patient oriented x3 Eyes General: appearance normal, both eyes and all related structures Resp Effort & Inspection: normal respiratory effort and able to speak in complete sentences Auscultation: clear to auscultation bilaterally Neuro General: patient oriented x3 Psych Mental Status: mental status grossly normal Assessment & Plan Assessment & Plan (1) Urticaria: Code(s): L50.9 - Urticaria, unspecified Plan Patient is 24-year-old female with a history of hives She started having rash 2 days ago Took Benadryl which did help however rash persist It is very pruritic and is extensively present especially on her buttocks and legs also on the arms There is no fever chills no sore throat no nausea no vomiting I am prescribing Medrol Dosepak for the patient she may continue with the Benadryl up to 2 times a day There is no swelling of lips or difficulty swallowing there is no wheezing no shortness a breath Medications: New methylprednisolone (Medrol (Mike)) PO PER PKG DIR 6 days 21 ea 0RF Coding Level of Care Code Est Pt Level 3 (57002) Diagnoses Urticaria L50.9
[2024-11-26 08:24] VITALS: BP 102/66; PULSE 80; TEMP 36.7; O2SAT 98
--- OUTSIDE RECORDS SUMMARY | 2024-11-26 08:33 | XMS_ITS | Encounter Summary ---
Author Organization [facility] Address [address] [place] [address] Phone Care Team Providers Care Game Trapper Name Role Phone Radha Lynn MD Primary Care Provider [phone] Reason for Visit * Reason Comments Med Refill Encounter Details Date Type Department Care Team ([facility] st Contact Info) Description 08/24/2020 Refill [facility] [place] [address] [place] [address] Radha Lynn MD 150 [place] [address] Irregular periods Social History Tobacco Use Types [...] periods documented in this encounter Care Teams Game Trapper Relationship Specialty Start Date End Date Radha Lynn MD 150 [facility] [place] [address] PCP - General 02/28/17 11/12/23 documented as of this encounter
--- OUTSIDE RECORDS SUMMARY | 2024-11-26 08:33 | XMS_ITS | Encounter Summary ---
Author Organization [facility] Address [address] [place] [address] Phone Care Team Providers Care Chief Telephone Operator Name Role Phone Radha Lynn MD Primary Care Provider Encounter Details Date Type Department Care Team (Late st Contact Info) Description 08/26/2011 Documentation [facility] [place] Family Medicine [address] [place] [address] Family Medicine, Physician [address] [place], [place] [phone] Social History Tobacco Use Types Packs/Day Years [...] on filedocumented in this encounter Care Teams Chief Telephone Operator Relationship Specialty Start Date End Date Radha Lynn MD [address] [place] [address] PCP - General 02/28/17 11/12/23 documented as of this encounter
--- OUTSIDE RECORDS SUMMARY | 2024-11-26 08:33 | XMS_ITS | Encounter Summary ---
Author Organization [facility] Address [address] [place] [address] Phone Care Team Providers Care Airways Operations Specialist Name Role Phone Radha Lynn MD Primary Care Provider [phone] Encounter Details Date Type Department Care Team (Late st Contact Info) Description 09/26/2010 Documentation [facility] [place] [address] [place] [address] Family Medicine, Physician [address] [place], [place] [phone] Social History Tobacco Use Types Packs/Day Years [...] on filedocumented in this encounter Care Teams Airways Operations Specialist Relationship Specialty Start Date End Date Radha Lynn MD [address] [place] [address] PCP - General 02/28/17 11/12/23 documented as of this encounter
--- OUTSIDE RECORDS SUMMARY | 2024-11-26 08:33 | XMS_ITS | Encounter Summary ---
Author Organization [facility] Address [address] [place] [address] Phone Care Team Providers Care Chemical Dependency Therapist Name Role Phone Radha Lynn MD Primary Care Provider [phone] Encounter Details Date Type Department Care Team (Late st Contact Info) Description 12/21/2010 Documentation [facility] [place] Family Medicine [address] [place] [address] Family Medicine, Physician [address] [place], [place] [phone] Social History Tobacco Use Types Packs/Day Years [...] on filedocumented in this encounter Care Teams Chemical Dependency Therapist Relationship Specialty Start Date End Date Radha Lynn MD [address] [place] [address] PCP - General 02/28/17 11/12/23 documented as of this encounter
--- OUTSIDE RECORDS SUMMARY | 2024-11-26 08:33 | XMS_ITS | Encounter Summary ---
Author Organization [facility] Address [address] [place] [address] Phone Care Team Providers Care Chemical Compounder Name Role Phone Radha Lynn MD Primary Care Provider Reason for Visit * Reason Onset Date Comments Med Refill 08/20/2021 Encounter Details Date Type Department Care Team ([facility] st Contact Info) Description 08/20/2021 Refill [facility] [place] [address] [place] [address] Radha Lynn MD [address] [place] [address] Irregular periods Social History Tobacco Use Types [...] periods documented in this encounter Care Teams Chemical Compounder Relationship Specialty Start Date End Date Radha Lynn MD [address] [place] [address] [place]CIOUS [place] [address] PCP - General 02/28/17 11/12/23 documented as of this encounter
--- OUTSIDE RECORDS SUMMARY | 2024-11-26 08:33 | XMS_ITS | Encounter Summary ---
Author Organization [facility] Address [address] [place] [address] Phone Care Team Providers Care Iron Miner Name Role Phone Radha Lynn MD Primary Care Provider Encounter Details Date Type Department Care Team ([facility] st Contact Info) Description 03/06/2017 Conversion Encounter [facility] [address] [place] [address] Social History Tobacco Use Types Packs/Day Years [...] on filedocumented in this encounter Care Teams Iron Miner Relationship Specialty Start Date End Date Radha Lynn MD [address] [place] [address] PCP - General 02/28/17 11/12/23 documented as of this encounter
--- OUTSIDE RECORDS SUMMARY | 2024-11-26 08:33 | XMS_ITS | Encounter Summary ---
Author Organization [facility] Address [address] [place] [address] Phone Care Team Providers Care Boring Machine Operator Production Name Role Phone Radha Lynn MD Primary Care Provider [phone]- [phone] Reason for Visit * Reason Comments Med Refill Encounter Details Date Type Department Care Team ([facility] st Contact Info) Description 11/10/2021 Refill [facility] [place] [address] [place] [address] Radha Lynn MD [address] [place] [address] Irregular periods Social History Tobacco Use Types [...] periods documented in this encounter Care Teams Boring Machine Operator Production Relationship Specialty Start Date End Date Radha Lynn MD [address] [place] [address] [place]CIOUS [place] [address] PCP - General 02/28/17 11/12/23 documented as of this encounter
--- OUTSIDE RECORDS SUMMARY | 2024-11-26 08:33 | XMS_ITS | Encounter Summary ---
Author Organization [facility] Address [address] [place] [address] Phone Care Team Providers Care Baseball Glove Shaper Name Role Phone Radha Lynn MD Primary Care Provider Encounter Details Date Type Department Care Team (Late st Contact Info) Description 09/23/2013 Documentation [facility] [place] Family Medicine [address] [place] [address] Family Medicine, Physician [address] [place], [place] [phone] Social History Tobacco Use Types Packs/Day Years [...] on filedocumented in this encounter Care Teams Baseball Glove Shaper Relationship Specialty Start Date End Date Radha Lynn MD [address] [place] [address] PCP - General 02/28/17 11/12/23 documented as of this encounter
--- OUTSIDE RECORDS SUMMARY | 2024-11-26 08:34 | XMS_ITS | Encounter Summary ---
Author Organization [facility] Address [address] [place] [address] Phone Care Team Providers Care Digital Photo Printer Name Role Phone Radha Lynn MD Primary Care Provider Encounter Details Date Type Department Care Team (Late st Contact Info) Description 01/30/2017 Documentation [facility] [place] Family Medicine [address] [place] [address] Family Medicine, Physician [address] [place], [place] [phone] Social History Tobacco Use Types Packs/Day Years [...] on filedocumented in this encounter Care Teams Digital Photo Printer Relationship Specialty Start Date End Date Radha Lynn MD [address] [place] [address] PCP - General 02/28/17 11/12/23 documented as of this encounter
--- OUTSIDE RECORDS SUMMARY | 2024-11-26 08:34 | XMS_ITS | Encounter Summary ---
Author Organization [facility] Address [address] [place] [address] Phone Care Team Providers Care Corrugator Helper Name Role Phone Radha Lynn MD Primary Care Provider +1- [phone] Reason for Visit * Reason Onset Date Comments Med Refill 11/19/2021 Encounter Details Date Type Department Care Team ([facility] st Contact Info) Description 11/19/2021 Refill [facility] [place] [address] [place] [address] Radha Lynn MD 150 [place] [address] Attention deficit hyperactivity disorder (ADHD), combined type [...] type documented in this encounter Care Teams Corrugator Helper Relationship Specialty Start Date End Date Radha Lynn MD 150 [facility] PRECIOUS [place] [address] PCP - General 02/28/17 11/12/23 documented as of this encounter
--- OUTSIDE RECORDS SUMMARY | 2024-11-26 08:34 | XMS_ITS | Encounter Summary ---
Author Organization [facility] Address [address] [place] [address] Phone Care Team Providers Care Sifter Operator Name Role Phone Radha Lynn MD Primary Care Provider [phone]- [phone] Reason for Visit * Reason Onset Date Comments Med Refill 10/17/2022 Encounter Details Date Type Department Care Team ([facility] Contact Info) Description 10/17/2022 Refill [facility] [place] [address] [place] [address] Radha Lynn MD [address] [place] [address] Attention deficit hyperactivity disorder (ADHD), combined type [...] type documented in this encounter Care Teams Sifter Operator Relationship Specialty Start Date End Date Radha Lynn MD 150 [facility] PRECIOUS [place] [address] PCP - General 02/28/17 11/12/23 documented as of this encounter
--- OUTSIDE RECORDS SUMMARY | 2024-11-26 08:34 | XMS_ITS | Encounter Summary ---
Author Organization [facility] Address [address] [place] [address] Phone Care Team Providers Care Consulting Sme Name Role Phone Radha Lynn MD Primary Care Provider Encounter Details Date Type Department Care Team (Late st Contact Info) Description 12/26/2016 Documentation [facility] Family Medicine [address] [place] [address] Family Medicine, Physician [address] [place], [place] [phone] Social History Tobacco Use Types Packs/Day Years [...] on filedocumented in this encounter Care Teams Consulting Sme Relationship Specialty Start Date End Date Radha Lynn MD [address] [place] [address] PCP - General 02/28/17 11/12/23 documented as of this encounter
--- OUTSIDE RECORDS SUMMARY | 2024-11-26 08:34 | XMS_ITS | Encounter Summary ---
Author Organization [facility] Address [address] [place] [address] Phone Care Team Providers Care Machinery Mover Name Role Phone Radha Lynn MD Primary Care Provider Reason for Visit * Reason Onset Date Comments Med Refill Med Refill 10/12/2018 Encounter Details Date Type Department Care Team ([facility] st Contact Info) Description 08/29/2018 Refill [facility] [place] [address] [place] [address] Radha Lynn MD 150 [place] [address] Irregular periods Social History Tobacco Use Types [...] periods documented in this encounter Care Teams Machinery Mover Relationship Specialty Start Date End Date Radha Lynn MD 150 [facility] PRECIOUS [place] [address] PCP - General 02/28/17 11/12/23 documented as of this encounter
--- OUTSIDE RECORDS SUMMARY | 2024-11-26 08:34 | XMS_ITS | Encounter Summary ---
Author Organization [facility] Address [address] [place] [address] Phone Care Team Providers Care Income Tax Administrator Name Role Phone Radha Lynn MD Primary Care Provider [phone] Reason for Visit * Reason Onset Date Comments Med Refill 01/18/2022 Encounter Details Date Type Department Care Team ([facility] st Contact Info) Description 01/18/2022 Refill [facility] [place] [address] [place] [address] Radha Lynn MD [address] [place] [address] Attention deficit hyperactivity disorder (ADHD), combined type [...] type documented in this encounter Care Teams Income Tax Administrator Relationship Specialty Start Date End Date Radha Lynn MD [address] [place] [address] [place]CIOUS [place] [address] PCP - General 02/28/17 11/12/23 documented as of this encounter
--- OUTSIDE RECORDS SUMMARY | 2024-11-26 08:34 | XMS_ITS | Clinical Summary ---
Author Organization [facility] Address [address] [place] [address] Phone Care Team Providers Care Log Driver Name Role Phone Unavailable Primary Care Provider [...] combined type 11/11/2018 Overview (11/19/2021): Evaluated at [facility] Started on Concerta 18 mg (September 2018)- [...] the flu vaccine, last declined Sep 2021 Immunizations Immunization Administration Dates Next Due COVID-19 [...] Alive Father: Alive a nd well Mother Mikaelaisaak Ly Alive Mother: Migrain es Paternal Grandmother [...] 12/22/2006, 04/18/2004, Additional history exists COVID-19 Vaccine ( - 2023-2 5 season) 2024 06/19/2021, 12/11/2020, 11/14/2020 Hepatitis [...] Completed 09/30/2023, 01/01/2022 Procedures * Due to [place] ActiveO law, this organization might not be sharing sensitive test results. Procedure Name Priority Date/Time Associated Diagnosis Comments CHLAMYDIA AND GONORRHEA, AMPLIFIED Routine 09/30/2023 11:49 AM EDT Screening examination for bacterial and spirochetal disease from Last 3 Months or Most Recently Relevant to Health Maintenance Results * Due to [place] ActiveO law, this organization might not be sharing sensitive test results. * Chlamydia and Gonorrhoea, Amplified (Urine) (09/30/2023 11:49 AM EDT) C trach GIANA Negative Negative [facility] N gonorrhoeae GIANA Negative Negative [facility] Urine (Urine, Random (not clean void)) 09/30/2023 11:49 AM EDT 09/30/2023 Comment:UrineJames [facility] - 10/02/2023 12:08 PM EDT Performed at: ??01 - [facility] [address] [place], [address] [place] [address] ??[id number] Jacquard Loom Fixer: Yosef Zarate MD, Phone: ??[phone] us Radha Lynn MD LAB MICROBIOLOGY - GENERAL ORDERABLES Final Result [facility] [address] [place] [address] from Last 3 Months or Most Recently Relevant to Health Maintenance Insurance [employer] BLUE CARD OUT OF STATE [employer] BLUE CARD OUT OF STATE
--- OUTSIDE RECORDS SUMMARY | 2024-11-26 08:34 | XMS_ITS | Encounter Summary ---
Author Organization [facility] Address [address] [place] [address] Phone Care Team Providers Care Automatic Coin Machine Mechanic Name Role Phone Radha Lynn MD Primary Care Provider [phone]- [phone] Reason for Visit * Reason Onset Date Comments Med Refill 08/04/2022 Encounter Details Date Type Department Care Team ([facility] st Contact Info) Description 08/04/2022 Refill [facility] [place] [address] [place] [address] Radha Lynn MD [address] [place] [address] Attention deficit hyperactivity disorder (ADHD), combined type [...] on 07/29/22 with 30 capsules. 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 The other 2 future [...] type documented in this encounter Care Teams Automatic Coin Machine Mechanic Relationship Specialty Start Date End Date Radha Lynn MD 150 [facility] [place] [address] PCP - General 02/28/17 11/12/23 documented as of this encounter
--- OUTSIDE RECORDS SUMMARY | 2024-11-26 08:34 | XMS_ITS ---
Author Name [facility] Organization Unknown Care Team Organization Name Specialty Phone Email Start Date End Da lucian [facility] 06/04/2024
--- OUTSIDE RECORDS SUMMARY | 2024-11-26 08:34 | XMS_ITS | Encounter Summary ---
Author Organization [facility] Address [address] [place] [address] Phone Care Team Providers Care Cook Syrup Maker Name Role Phone Radha Lynn MD Primary Care Provider Encounter Details Date Type Department Care Team ([facility] st Contact Info) Description 06/12/2016 Documentation [facility] Family Medicine [address] [place] [address] Family Medicine, Physician [address] [place], [place] [phone] Social History Tobacco Use Types Packs/Day Years [...] on filedocumented in this encounter Care Teams Cook Syrup Maker Relationship Specialty Start Date End Date Radha Lynn MD [address] [place] [address] PCP - General 02/28/17 11/12/23 documented as of this encounter
--- OUTSIDE RECORDS SUMMARY | 2024-11-26 08:34 | XMS_ITS | Encounter Summary ---
Author Organization [facility] Address [address] [place] [address] Phone Care Team Providers Care Policy Intern Name Role Phone Radha Lynn MD Primary Care Provider [phone]- [phone] Reason for Visit * Reason Onset Date Comments Med Refill 11/25/2021 Encounter Details Date Type Department Care Team ([facility] st Contact Info) Description 11/25/2021 Refill [facility] [place] [address] [place] [address] Radha Lynn MD [address] [place] [address] Attention deficit hyperactivity disorder (ADHD), combined type [...] type documented in this encounter Care Teams Policy Intern Relationship Specialty Start Date End Date Radha Lynn MD [address] [place] [address] [place]CIOUS [place] [address] PCP - General 02/28/17 11/12/23 documented as of this encounter
== END 2024-11-26 08:37 | disposition home or self-care (01) ==
PROVIDERS: Visit Provider Internal Medicine
DX: L50.9 Urticaria, unspecified (principal)

== ENCOUNTER → 2024-11-26 08:23 | Outpatient (BNVA) | payer BC, SELFPAY | PROVIDERS: Visit Provider Internal Medicine ==

== ENCOUNTER → 2024-12-16 13:14 | Outpatient (BNVA) | payer BC, SELFPAY | PROVIDERS: Visit Provider Internal Medicine | DX: Z13.89 Encounter for screening for other disorder (principal) ==

== ENCOUNTER 2025-01-15 09:57 | Emergency (ER) | payer OTHER, SELFPAY ==
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
--- NOTE | ~2025-01-15 | XR_ITS ---
CLINICAL HISTORY: pain, injury 4 view left knee Comparison: None provided Findings: No fractures or dislocations. No significant arthritic change or erosions. No joint effusion. No radiopaque foreign body. IMPRESSION: 1. No acute findings. This document has been electronically signed by: Johnny Light MD on 01/15/2025 11:58:35
--- NOTE | ~2025-01-15 | CT_ITS ---
CLINICAL HISTORY: head strike, pain CT cervical spine without contrast Comparison: None provided Findings: Vertebral alignment is within normal limits. No significant degenerative change. No acute fractures or dislocations. No acute findings on limited view of the intracranial contents. Soft tissues of the neck are normal. Lung apices are clear. IMPRESSION: No acute findings. This document has been electronically signed by: Johnny Light MD on 01/15/2025 11:43:35
[2025-01-15 10:03] VITALS: BP 111/62; PULSE 82; RESP 16; TEMP 36.8; O2SAT 100; BMI 20.4
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
--- OUTSIDE RECORDS SUMMARY | 2025-01-15 10:18 | XMS_ITS | Encounter Summary ---
Author Organization [facility] Address [address] [place] [address] Phone Care Team Providers Care Programming Development Project Manager Name Role Phone Radha Lynn MD Primary Care Provider [phone] Encounter Details Date Type Department Care Team (Late st Contact Info) Description 09/23/2013 Documentation [facility] [place] [address] [place] [address] Family Medicine, Physician [address] [place], [place] [phone] Social History Tobacco Use Types Packs/Day Years [...] on filedocumented in this encounter Care Teams Programming Development Project Manager Relationship Specialty Start Date End Date Radha Lynn MD [address] [place] [address] PCP - General 02/28/17 11/12/23 documented as of this encounter
[2025-01-15 10:33] LABS: UPreg QC Valid YES; Urine Pregnancy NEGATIVE (NEGATIVE)
--- NOTE | 2025-01-15 11:01 | PC.NURSE ---
Pt ambulatory to/from [facility]; redness noted to knees; vss; pt c/o head and neck pain; denies LOC; upreg negative; CT scans completed/results pending
[2025-01-15] MEDS: Ketorolac Tromethamine 15 MG/ML VIAL IM (11:39)
[2025-01-15] MEDS: Acetaminophen 325 MG TABLET 650 MG PO (11:40)
[2025-01-15 12:22] VITALS: BP 119/60; PULSE 76; RESP 13; TEMP 36.6; O2SAT 100
== END 2025-01-15 12:24 | disposition home or self-care (01) ==
PROVIDERS: Physician Assistant Medical; Emergency Provider Emergency Medicine
DX: S16.1XXA Strain of muscle, fascia and tendon at neck level, initial encounter (principal); S89.92XA Unspecified injury of left lower leg, initial encounter; R51.9 Headache, unspecified; M54.2 Cervicalgia; M25.562 Pain in left knee; V43.62XA Car passenger injured in collision with other type car in traffic accident, initial encounter; Y93.9 Activity, unspecified; Y92.410 Unspecified street and highway as the place of occurrence of the external cause; Y99.8 Other external cause status
CPT/HCPCS: 70450; 72125; 73562; 81025; 96372; 99284; J1885

== ENCOUNTER → 2025-01-15 10:13 | Outpatient (BNV) | payer BC, SELFPAY | PROVIDERS: Visit Provider Radiology Diagnostic Radiology | DX: S09.90XA Unspecified injury of head, initial encounter (principal); M54.2 Cervicalgia; R51.9 Headache, unspecified; M25.562 Pain in left knee | CPT/HCPCS: 70450; 72125; 73562 ==

== ENCOUNTER 2025-02-04 09:14 | Outpatient (REF) | payer BC, OTHER, SELFPAY ==
--- OUTSIDE RECORDS SUMMARY | 2025-02-04 09:18 | XMS_ITS | Encounter Summary ---
Author Organization [facility] Address [address] [place] [address] Phone Care Team Providers Care Vice President Of Contracts Name Role Phone Radha Lynn MD Primary Care Provider Encounter Details Date Type Department Care Team (Late st Contact Info) Description 09/23/[address] [facility] Family Medicine [address] [place] [address] Family Medicine, Physician [address] [place], [place] [phone] Social History Tobacco Use Types Packs/Day Years [...] on filedocumented in this encounter Care Teams Vice President Of Contracts Relationship Specialty Start Date End Date Radha Lynn MD [address] [place] [id number] PCP - General 02/28/17 11/12/23 documented as of this encounter
[2025-02-04 10:11] LABS: MANUAL DIFF FLAG NO
[2025-02-04 10:45] LABS: Hematocrit 34.2 % (37.0-47.0); Hemoglobin 11.5 g/dl (12.0-16.0); Imm Gran Abs Auto 0.03 X10*3/uL (0.00-0.03); Imm Gran Pct Auto 0.4 % (0.0-0.4); Lymphocytes Absolute Auto 2.3 X10*3/uL (1.2-4.9); Mean Corpuscular HGB Conc 33.6 g/dl (31.0-35.0); Mean Corpuscular Hemoglobin 26.2 pg (27.0-33.0); Mean Corpuscular Volume 77.9 fL (80.0-98.0); NRBC Abs Auto 0.000 X10*3/uL (0.0-0.012); NRBC Pct Auto 0.0 /100WBC (0.0-0.2); Platelet Count 204 X10*3/uL (160-400); Red Blood Count 4.39 X10*6/uL (4.20-5.50); White Blood Count 7.8 X10*3/uL (4.8-10.8)
[2025-02-04 11:19] LABS: Alanine Aminotransferase 28 U/L (0-31); Albumin Level 4.6 g/dL (3.5-5.0); Alkaline Phosphatase 56 U/L (39-117); Anion Gap 11 (12-20); Aspartate Amino Transferase 35 U/L (5-31); Blood Urea Nitrogen 13 mg/dL (9-16); Calcium 9.0 mg/dL (8.4-10.2); Carbon Dioxide 27 mmol/L (22-29); Chloride 105 mmol/L (96-108); Cholesterol 147 mg/dL (<200); Estimated Glomerular Filt Rate > 60; HDL Cholesterol 64 mg/dL (>40); Potassium 4.2 mmol/L (3.3-5.1); Sodium 139 mmol/L (135-145); Total Protein 7.3 g/dL (6.5-8.0); Triglycerides 23 mg/dL (<150)
== END 2025-02-04 09:15 | disposition home or self-care (01) ==
LOC: HO.HMGCLDS 09:14
PROVIDERS: PCP Internal Medicine; Visit Provider Internal Medicine
DX: Z00.01 Encounter for general adult medical examination with abnormal findings (principal); Z13.6 Encounter for screening for cardiovascular disorders; R61 Generalized hyperhidrosis; F90.9 Attention-deficit hyperactivity disorder, unspecified type
CPT/HCPCS: 36415; 80053; 80061; 82306; 84443; 85025

== ENCOUNTER 2025-02-08 12:48 | Outpatient (AMB) | payer BC, SELFPAY ==
--- NOTE | 2025-02-08 12:55 | A.OFFPC_ITS ---
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 by: Self / Same As Patient Allergies No Known Allergies Allergy (Verified 02/08/25 12:58) Medication List - Last Reconciled 02/08/25 by Yamile Zamarripa MD dexmethylphenidate ER 40 mg PO QAM levonorgestrel (Liletta) intrauterine Tobacco use date assessed: 02/08/25 Dental Screening Dental Screen Date: 02/08/25 Did you have a dental visit in the last 12 months?: Yes Did you have a dental problem in the last 6 months where you did not have access to dental care?: No Was dental information given to patient?: Patient has dentist HPI f/u labs HPI Details - The patient is a 24-year-old female pr esenting with ADHD,- iron deficiency anemia and elevated liver enzymes. - Iron deficiency anemia: The patient's hemoglobin decreased from 13.1 g/dL in April to 11.5 g/dL, indicating iron deficiency anemia. - The patient denies heavy menstrual ble eding, nosebleeds, or other sources of blood loss. - Dietary habits include hamburgers and salmon, suggesting adequate dietary iron intake. - Elevated liver enzymes: The patient oc casionally consumes alcohol, which may contribute to elevated liver enzymes. - The patient denies gallbladder issues or abdominal pain, and other liver function tests are normal. -she is scheduled to move out of the [facility] this weekend, moving the finds to pursue master's degree and is planning to stay there. She is currently in the process of looking for another healthcare provider over there and would like to see if she can get a 3 month prescription on her focalin,, which she states has been helping with the keeping concentration and focus [facility] Medical History (Updated 02/14/25 @ 00:24 by Yamile Zamarripa MD) Anemia Excessive sweating ADHD (attention deficit hyperactivity disorder) Surgical History No pertinent past surgical history Family History Sister Mental health disorder Depression Paternal Aunt Mental health disorder Depression Maternal Grandfather Substance use disorder Depression Father Diabetes mellitus Maternal Grandfather Alcoholism Social History Housing: House Patient Tobacco Use Status: Former Tobacco user e-Cigarette/Vaping Use: Former Use service: No Current occupational status: employed Cognitive needs: No Hearing needs: No Vision needs: No Questionnaire PHQ-9 Over the last 2 weeks, how often have you been bothered by any of the following problems? 22297 - PHQ-9 Billing: Patient declined-do not bill Source: Developed by Drs. Paco Srivastava, She Hernandez, Jarod Rodriguez and colleagues, with an educational jose from [employer]. Thrive Questionnaire Date Thrive assessed: 09/16/24 I am a: Patient What is your living situation today?: I choose not to answer this question Within the past 12 months, did the food you bought not last and you didn't have the money to get more?: I choose not to answer this question Within the past 12 months, did you worry whether your food would run out before you got money to buy more?: I choose not to answer this question Do you have trouble paying for medicines?: I choose not to answer this question Do you have trouble getting transportation to medical appointments?: I choose not to answer this question Do you have trouble paying your heating and electricity bill?: I choose not to answer this question Do you have trouble taking care of your child, family member or friend?: I choose not to answer this question Do you have trouble with day-to-day activities such as bathing, preparing meals, shopping, managing finances, etc.?: I choose not to answer this question Are you currently unemployed and looking for a job?: I choose not to answer this question Are you interested in more education?: I choose not to answer this question Please select the resources that you would like help with: None Currently or been in a relationship where the following occur: I choose not to answer THRIVE Score: 0 COLLETTE-7 AMB Questionnaire COLLETTE-7 Date COLLETTE - 7 assessed: 09/16/24 Feeling nervous, anxious, or on edge: 0 = Not at all Not being able to stop or control worryin = Not at all Worrying too much about different things: 0 = Not at all Trouble relaxin = Not at all Being so restless that it is hard to sit still: 0 = Not at all Becoming easily annoyed or irritable: 0 = Not at all Feeling afraid as if something awful might happen: 0 = Not at all Total COLLETTE-7 score (0-4 normal; 5-9 mild; 10-14 moderate; 15-21 severe): 0 Source: Developed by Drs. Paco Srivastava, She Hernandez, Jarod Rodriguez and colleagues, with an educational jose from [employer]. COLLETTE-7 Assessment Billing COLLETTE-7 Assessment Tool: COLLETTE-7 Assessment 04338 Review of Systems Const All systems reviewed & are unremarkable except as noted in HPI and below Physical exam (Primary Care) Vital Signs: Last Vital Signs Temp 98.1 F 02/08/25 12:57 Pulse 77 02/08/25 12:57 Resp 16 02/08/25 12:57 BP 102/64 02/08/25 12:57 BMI result Body Mass Index 21.1 Tobacco/Smoking Status: Tobacco use Status Tobacco use date assessed 02/08/25 02/08/25 13:03 Patient Tobacco Use Status Former Tobacco user 02/08/25 12:55 e-Cigarette/Vaping Use Former Use 02/08/25 12:55 Thrive Assessment: Date of Thrive Assessment Date Thrive assessed 09/16/24 02/08/25 12:55 Currently or been in a relationship where the following occur: I choose not to answer Const General: no acute distress and alert Orientation/consciousness: patient oriented x3 HENMT Ears: external ears normal, TM's normal bilaterally and EAC's normal General nose exam: Normal external nose present and No nasal discharge present Mouth: Normal oral and palatal mucosa present, oropharynx normal and moist mucous membranes Eyes General: appearance normal, both eyes and all related structures Neck Neck: Yes full ROM, Yes no lymphadenopathy and Yes supple Resp Effort & Inspection: normal respiratory effort and able to speak in complete sentences Auscultation: clear to auscultation bilaterally Cardio Rate: regular rate Rhythm: regular rhythm Heart sounds: S1 normal heart sound present and S2 normal heart sound present GI Palpation (GI): Soft to palpation, nontender and no masses Auscultation: normal bowel sounds Back/Spine/Pelvis Back: No back tenderness Skin General skin exam: no rashes or lesions noted Neuro General: patient oriented x3, gait normal, tone normal, moves all extremities, Normal light touch and pain sensation and no focal motor deficits Cranial nerves: Yes CN's II-XII intact bilaterally Cognition (Neuro): normal cognition Extrem General: Yes full ROM, Yes no joint enlargement, Yes no clubbing, cyanosis or edema and Yes no calf tenderness Psych Appearance: grossly normal and well kempt Mental Status: mental status grossly normal Speech and movement: Normal speech and movement present Affect: normal affect Coding Level of Care Code Est Pt Level 4 (27421) Diagnoses ADHD (attention deficit hyperactivity disorder) F90.9 Anemia, unspecified type D64.9 Anemia type: unspecified type Additional Codes COLLETTE-7 Assessment Billing - COLLETTE-7 Assessment Tool: COLLETTE-7 Assessment 20046 ([id number]) Assessment & Plan Assessment & Plan (1) ADHD (attention deficit hyperactivity disorder): Code(s): F90.9 - Attention-deficit hyperactivity disorder, unspecified type Category: Medical (2) Anemia: Code(s): D64.9 - Anemia, unspecified Category: Medical Qualifiers: Anemia type: unspecified type Qualified Code(s): D64.9 - Anemia, unspecified Plan The patient will begin iron supplementation to treat iron deficiency anemia, with instructions to take it daily for two months and then as needed. Increasing dietary fiber is recommended to mitigate constipation. The patient should watch for symptoms of iron deficiency and seek care if they persist. For elevated liver enzymes, the patient is advised to limit alcohol intake, especially with the move to [facility] where alcohol is cheaper. Monitoring for liver dysfunction symptoms and establishing care with a provider in [place] is recommended. Prescription refill sent for a 3 month supply for Focalin, to drink stool, patient advised to get an appointment with another provider when she moves do [facility]. Patient was informed and verbally consented to the use of an ambient scribe for clinic note documentation during this visit. Medications: Changed From dexmethylphenidate ER Partial Fill upon patient request. 40 mg PO QAM 30 caps 0RF F90.9 - Attention-deficit hyperactivity disorder, unspecified type To dexmethylphenidate ER [place], needs at least an 3 month supply until she finds a new physician in [place] 40 mg PO QAM 90 caps 0RF F90.9 - Attention-deficit hyperactivity disorder, unspecified type
[2025-02-08 12:57] VITALS: BP 102/64; PULSE 77; RESP 16; TEMP 36.7; BMI 21.1
== END 2025-02-08 14:14 | disposition home or self-care (01) ==
LOC: HO.HMCC 12:49
PROVIDERS: Visit Provider Internal Medicine
DX: F90.9 Attention-deficit hyperactivity disorder, unspecified type (principal); D64.9 Anemia, unspecified

== ENCOUNTER → 2025-02-08 12:48 | Outpatient (BNVA) | payer BC, SELFPAY | PROVIDERS: Visit Provider Internal Medicine | DX: F90.9 Attention-deficit hyperactivity disorder, unspecified type (principal); D50.9 Iron deficiency anemia, unspecified | CPT/HCPCS: 96127 ==